=== PATIENT | male | born 1960 | race Caucasian/White ===

== ENCOUNTER → 2019-09-02 | Outpatient (CLI) | payer OTHER | LOC: M.MRI 16:20 | DX: M47.816 Spondylosis without myelopathy or radiculopathy, lumbar region (principal); M43.16 Spondylolisthesis, lumbar region ==

== ENCOUNTER → 2021-01-22 | Outpatient (CLI) | payer OTHER ==
--- NOTE | 2021-01-22 17:21 | CARDNUC ---
[place] [address] CARDIAC NUCLEAR IMAGING REPORT Name: NELY ZAPATA Room: [facility]#: [id number] Admission: 01/22/21 Attend Phys: Qi Bautista, Discharge: Date of : 58 Date of Service: 01/22/21 1720 Report #: [id number] THIS REPORT FOR: cc: Cortez Espinoza MD, Matthew W. MD Liston, Michael J. MD [facility] ~ APPROVED REPORT Study performed: 01/22/2021 11:24:26 Exam: Nuclear Stress Test Indication: Chest pain Patient Location: Out-Patient Stress Tech: Tete Hart Stress Nurse: Mitzi Morrison RN Ht: 5 ft 6 in Wt: 196 lbs BSA: 1.98 m2 BMI: 31.63 Medical History Medical History: CAD s/p CABG, Diabetes, HTN Medications: amlodipine, asa-81, atorvastatin Allergies: cyclobenapine Cardiac Risk Factors: Age, DM, HTN Previous Cardiac Procedures: CABG Exercise History: Physically active Stress Test Details Stress Test: Exercise stress testing was performed using a Nagi protocol. HR Resting HR: 82 bpm Max Heart Rate (APMHR): 159 bpm Max HR Achieved: 152 bpm Target HR (85% APMHR): 135 bpm % of APMHR: 95 Recovery HR: 103 bpm BP Resting BP: 147/82 mmHg Max BP: 216/78 mmHg ECG Resting ECG: Sinus Rhythm Stress ECG: Sinus Tachycardia ST Change: [place] [address] CARDIAC NUCLEAR IMAGING REPORT Name: NELY ZAPATA Room: [facility]#: [id number] Admission: 01/22/21 Attend Phys: iQ Bautista, Discharge: Date of : 58 Date of Service: 01/22/21 1720 Report #: [id number] Arrhythmia: VPC's Recovery ECG: Sinus Rhythm Recovery ST Change: None Recovery Arrhythmia: VPC's Clinical Reason for Termination: Dyspnea, Fatigue Exercise duration: 6 min 45 sec Exercise capacity: 8.20 METs Overall Exercise Capacity for Age: Reduced Functional Aerobic Impairment 96% The patient tolerated standard Nagi protocol exercise without significant cardiac symptoms. Stress ECG Conclusion The baseline twelve-lead EKG showed sinus rhythm without significant ST segment or T wave abnormality. EKGs obtained during and post exercise show sinus rhythm and sinus tachycardia with no significant ST segment or T wave changes when compared to baseline. There were occasional unifocal premature ventricular contractions during and post exercise. NM EXAM: Myocardial Perfusion REST/STRESS Resting Data Rest SPECT myocardial perfusion imaging was performed in supine position 30 minutes following the intravenous injection of 11.2 mCi of Tc-99m Sestamibi. Time of rest injection: 10:00 The images were gated to evaluate regional wall motion and calculate left ventricular ejection fraction. Administration Route: IV Administration Site: Right Wrist Exercise Stress At peak stress, the patient was injected intravenously with 34.5mCi of Tc-99m Sestamibi. Time of stress injection: 11:30 Administration Route: IV Administration Site: Right Wrist Heart Rate at time of stress injection: 145 bpm. Patient continued to exercise for 1 minute(s). The images were gated to evaluate regional wall motion and calculate left ventricular ejection fraction. [place] [address] CARDIAC NUCLEAR IMAGING REPORT Name: NELY ZAPATA Room: [facility]#: [id number] Admission: 01/22/21 Attend Phys: SienaJose Eduardo Bautista, Discharge: Date of : 58 Date of Service: 01/22/21 1720 Report #: [id number] Study Quality Study: Good Artifact: Mild Diaphragmatic artifact Study Data At rest, the left ventricular ejection fraction was 61%.. Post stress, the left ventricular ejection was 65%.. TID = 0.91. Perfusion Perfusion images show a focal region of photopenia in the basal portion inferolateral wall. Wall motion in this region appears normal on gated studies. Review of the raw data suggest tissue attenuation artifact. Wall Motion Normal left ventricular wall motion. Nuclear Conclusion ECG Findings: negative for ischemia Clinical Findings: negative for ischemia Nuclear Findings: negative for ischemia Exercise Capacity: Reduced Left Ventricular Function: normal Risk Study: low Perfusion study show no defects to suggest ischemia. Left ventricular systolic function appears normal on gated studies. This is a low risk study. <Conclusion> The baseline twelve-lead EKG showed sinus rhythm without significant ST segment or T wave abnormality. EKGs obtained during and post exercise show sinus rhythm and sinus tachycardia with no significant ST segment or T wave changes when compared to baseline. There were occasional unifocal premature ventricular contractions during and post exercise. <ELECTRONICALLY SIGNED> By: Anthony Velazquez MD, FACC 01/22/21 172 19 19 Anthony Velazquez MD, FACC /INF
== END ==
LOC: M.NUC 01-06 14:41
PROVIDERS: ATTEND Internal Medicine
DX: I25.10 Atherosclerotic heart disease of native coronary artery without angina pectoris (principal); Z95.1 Presence of aortocoronary bypass graft